=== PATIENT | male | born 1980 | race Caucasian/White ===

== ENCOUNTER 2021-10-20 10:43 | Day surgery (SDC) | payer OTHER ==
[~2021-10-20] VITALS: Ht 185.4 cm; Wt 107.0 kg
[~2021-10-20 10:43] MED LIST: ACETAMINOPHEN 500 MG TABLET PO PRN; HYDROmorphone 2 MG/ML INJ. IVP PRN; IV RINGERS,LACTATED 1000ML 1,000 ML IV SCH; OMEP20TA63 PO; PROCHLORPERAZINE 10 MG/2 ML VIAL. IVP PRN; fentaNYL PF VIAL 100 MCG/2 ML VIAL IVP PRN
[2021-10-20 11:03] VITALS: BP 136/85
[2021-10-20] MEDS ORDERED: SURGICEL HEMOSTAT 4X8 EACH. ONE (11:44)
[2021-10-20] MEDS ORDERED: IOHEXOL 300 MG/ML 50 ML VIAL. ONE (11:44)
[2021-10-20] MEDS ORDERED: BUPIVACAINE-EPI 0.25%-1:200000 MPF 30 ML VIAL. ONE (11:44)
[2021-10-20] MEDS ORDERED: ROCURONIUM 50 MG/5 ML VIAL. ONE (12:04)
[2021-10-20] MEDS ORDERED: PROPOFOL 10 MG/ML (20ML) VIAL. IV ONE (12:05)
[2021-10-20] MEDS ORDERED: DEXAMETHASONE SOD PHOS 4 MG/ML VIAL ONE ×2 (12:05→12:25)
[2021-10-20] MEDS ORDERED: KETOROLAC 30 MG/ML VIAL. ONE (12:05)
[2021-10-20] MEDS ORDERED: SEVOFLURANE 61 TO 120 MINUTES. IH ONE (12:05)
[2021-10-20] MEDS ORDERED: LIDOCAINE 2% PF 5 ML VIAL. ONE (12:05)
[2021-10-20] MEDS ORDERED: fentaNYL PF VIAL 100 MCG/2 ML VIAL ONE ×2 (12:05→13:29)
[2021-10-20] MEDS ORDERED: ONDANSETRON PF 4 MG/2 ML VIAL. ONE (12:05)
[2021-10-20] MEDS ORDERED: GLYCOPYRROLATE 1 MG/5 ML VIAL. ONE (12:39)
[2021-10-20] MEDS ORDERED: NEOSTIGMINE METHYLSULFATE 5 MG/5 ML SYRINGE. ONE (12:40)
--- NOTE | 2021-10-20 13:00 | PDOC4 ---
Operative Note Operative Note Date: October 20, 2021 at 12:57 PM Preoperative diagnosis: Biliary dyskinesia Postoperative diagnosis: Same Procedure: Laparoscopic cholecystectomy with fluorescein cholangiography Surgeon: Oscar Specimen: Gallbladder Dictation: Patient is a 41-year-old male with complaints of right upper quadrant abdominal pain worse after eating. Procedure of laparoscopic cholecystectomy was explained to the patient detail risk-benefit were also discussed including bleeding infection injury to intra-abdominal contents possibly sustaining further open operations alternatives this procedure also discussed with the patient who seemed to understand and gave a verbal written consent to have procedure performed. Patient was taken to the operating room placed in the supine position general anesthesia was initiated once patient was sleeping intub ated his abdomen was prepped and draped usual sterile fashion using ChloraPrep. An area just below the umbilicus was injected with quarter percent Marcaine with epinephrine incision was made 11 blade scalpel and a varies needle was placed within the abdomen creating pneumoperitoneum once this complete 11 mm port was placed and a 5 mm camera was placed within the abdomen which was inspected no other ab maladies were noted. A 5 mm ports placed in the epigastrium a 5 mm port was placed in the right midabdomen a 5 mm port was placed in the right lateral abdomen all under direct visualization. The dome of the gallbladder is grasped retracted cephalad the infundibulum the gallbladder is grasped tract laterally there was some adhesions taken down off the bladder down to the triangle of adherent tissues in the triangle were taken down blunt dissection exposing the cystic duct and cystic artery fluorescing cholangiography was then performed which showed good dye within the cystic duct and common bile duct. The cystic duct was then doubly clipped and transected as well as the cystic artery was clipped and transected. Gallbladder was taken off the liver with hook electrocautery placed in Endo Catch bag and roof the umbilicus the right upper quadrant was irrigated and suctioned dry hemostasis need be appropriate the pneumoperitoneum was reduced all ports were removed the fascial defect at the umbilicus was closed with [id number] 0 Vicryl suture and the skin was reapproximated all port sites for subcuticular Monocryl Mastisol Steri-Strips and island dressings were applied. Patient was awakened and extubated in the operating room taken to recovery in stable condition all sponge instrument needle counts listed as correct estimated blood loss 10 mL VIVIANA NIEVES MD October 20, 2021 13:00
[2021-10-20] MEDS ORDERED: OXYC-325 PO (13:04)
--- NOTE | 2021-10-20 13:06 | DISCH ---
DISCHARGE INSTRUCTIONS Condition on Discharge Condition on Discharge: Stable Activity After Discharge Activity Instructions for Disc: Avoid exertion Other activity instructions: No lifting more than 20 pounds for 2 Diet after Discharge Diet after Discharge: Low Fat Wound Incision Care Other wound/incision instructi: Brittnee shower in 24 hours Contacting the [facility] after DC Call your doctor for: If your condition worsens Follow-Up Follow up with: Dr. Nieves in 2-week VIVIANA NIEVES MD October 20, 2021 13:06
[2021-10-20] MEDS ORDERED: MORPHINE SULFATE 2 MG/ML INJ. ONE (13:29)
[2021-10-20] MEDS ORDERED: oxyCODONE/APAP 5/325 1 TAB TABLET PO ONE (13:30)
[2021-10-20] MEDS: fentaNYL PF VIAL 100 MCG/2 ML VIAL IVP PRN ×2 (13:33→13:38)
[2021-10-20] MEDS: MORPHINE SULFATE 2 MG/ML INJ. IVP PRN ×2 (13:34→13:46)
[2021-10-20] MEDS ORDERED: PROCHLORPERAZINE 10 MG/2 ML VIAL. ONE (13:42)
[2021-10-20] MEDS ORDERED: HYDROmorphone 2 MG/ML INJ. ONE (14:13)
[2021-10-20 14:40] VITALS: BP 136/76
--- NOTE | 2021-10-21 17:30 | PATHOLOGY ---
[facility] Accession Number: [id number] . 01 Material submitted: . gallbladder - GALLBLADDER AND CONTENTS . 01 Clinical history: . BILIARY DYKINESIA . 02 Diagnosis: Gallbladder, laparoscopic cholecystectomy: - Cholesterolosis. - Chronic cholecystitis. (JAKEM:bailey; 10/21/2021) [facility] 10/21/2021 1237 Local . 02 Comment: There are no calculi identified within the gallbladder lumen or specimen container. There is no evidence of malignancy. (JPM:bailey; 10/21/2021) . 02 Electronically signed: . Alan Morales MD, Pathologist NPI- [id number] . 01 Gross description: . Fixative: Formalin Labeled: Gallbladder and contents Specimen received: A previously disrupted, gallbladder specimen with a clipped cystic duct margin Dimensions: 6.4 x 3.0 x 1.4 cm Serosa: Villatoro-pink, smooth and glistening, displaying surgical artifact Adventia: Yellow-green, shaggy, cauterized, displaying a fundal full-thickness defect, measuring 0.9 x 0.8 cm Lymph node: Not identified Mucosa: Villatoro-green, focally erythematous, diffusely spiculated with yellow spicules, and focally denuded Wall thickness: 0.2-0.4 cm Calculi: No choleliths are identified within the specimen or specimen container . A1- [place] Hand neck, body, fundus, and the cystic duct margin. (JGG; 10/20/2021) JGG/JANDREA 10/20/2021 1836 Local . 02 Pathologist provided ICD-10: K81.1, K82.4 . 02 CPT . 831712 Specimen Comment: A courtesy copy of this report has been sent to [phone], [phone] Specimen Comment: [id number] Specimen Comment: Report sent to / DR STALLWORTH Specimen Comment: A duplicate report has been generated due to demographic updates. Performed at: 01 [facility] [address] [id number] MD Jb Mueller MD Phone: [phone] Performed at: 02 [facility] [address] [place], [place] [id number] MD Alan Morales MD Phone: [phone]
== END 2021-10-20 15:05 | disposition home or self-care (01) ==
LOC: SURG 10:43
PROVIDERS: ATTEND Surgery
DX: K81.1 Chronic cholecystitis (principal); K82.4 Cholesterolosis of gallbladder; Z79.899 Other long term (current) drug therapy; Z98.890 Other specified postprocedural states; Z72.89 Other problems related to lifestyle
CPT/HCPCS: 47563; A4364; A4930; A6219; J0690; J0780; J1100; J1170; J1885; J2270; J2405; J2704; J2710; J3010; J3490; 88304; A4657; Q9967